=== PATIENT | female | born 1945 | race Caucasian/White ===

== ENCOUNTER → 2017-12-05 | Outpatient (CLI) | payer OTHER ==
[~2017-12-05] MED LIST: AMLO5TAB2 PO; LOSA25TA5 PO; PRAV20TA2 PO
== END | disposition home or self-care (01) ==
LOC: CFH 15:04
PROVIDERS: ATTEND Nurse Practitioner Family
DX: M51.27 Other intervertebral disc displacement, lumbosacral region (principal); M51.36 Other intervertebral disc degeneration, lumbar region; M41.86 Other forms of scoliosis, lumbar region; G57.02 Lesion of sciatic nerve, left lower limb
CPT/HCPCS: 72148